=== PATIENT | male | born 1960 | race African-American/Black ===

== ENCOUNTER → 2018-06-28 | Day surgery (SDC) | payer OTHER ==
[~2018-06-28] MED LIST: BYSTOLIC10 MG PO; FENTANYL CITRATE/PF 100MCG/2 ML INJ ONE; HYOSCYAMINE SULFATE 0.5 MG/ML INJ ONE; LIDOCAINE HCL 2% LOCAL INJ 5 ML SDV VIAL INJ ONE; MIDAZOLAM HCL 2 MG/2 ML VIAL ONE; PROPOFOL IV EMULSION 10 MG/ML 20 ML VIAL ONE
[2018-06-28 15:35] VITALS: BP 141/92
--- NOTE | 2018-06-29 00:10 | Operative Report ---
DATE OF PROCEDURE: 06/28/2018 PROCEDURE: Colonoscopy and polypectomy. INDICATION FOR COLONOSCOPY: Colorectal cancer screening. MEDICATIONS: The patient was done under MAC. Please see anesthesiologist's note. PROCEDURE IN DETAIL: With the patient in left lateral decubitus position, a flexible fiberoptic Olympus colonoscope was inserted into the rectum with ease and advanced all the way to the cecum. The right colon was suboptimally prepped. No obvious obstructing or constricting lesions. Also, there was pandiverticulosis. One polyp was snared from the ascending colon and polypectomy site was hemoclipped. One polyp was hot biopsied from the transverse colon. One polyp was snared and one polyp was hot biopsied from the sigmoid colon. Four polyps were hot biopsied from the rectum. The scope was then retroflexed into the distal rectum and small internal hemorrhoids were noted, none of which were actively bleeding. The scope was then straightened out and was subsequently withdrawn. The patient tolerated the procedure well. IMPRESSION: 1. Suboptimal prep, right colon. 2. Pandiverticulosis. 3. Ascending colon polyp, snared and hemoclipped. 4. Transverse colon polyp, hot biopsied. 5. Sigmoid colon polyp x2, 1 snared and 1 hot biopsied. 6. Rectal polyp x4, hot biopsied. 7. Internal hemorrhoids, none actively bleeding. PLAN: Followup pathology. The patient will need a followup colonoscopy in 1 year due to the suboptimal prep. A total of 8 polyps were removed. Domenic Sr MD [facility] [place] /[id number] cc: Domenic Covington MD
== END | disposition home or self-care (01) ==
LOC: OR 09:21
PROVIDERS: ATTEND Internal Medicine Gastroenterology
DX: Z12.11 Encounter for screening for malignant neoplasm of colon (principal); D12.2 Benign neoplasm of ascending colon; D12.5 Benign neoplasm of sigmoid colon; K62.1 Rectal polyp; K64.8 Other hemorrhoids; K57.30 Diverticulosis of large intestine without perforation or abscess without bleeding; G47.33 Obstructive sleep apnea (adult) (pediatric); I10 Essential (primary) hypertension; Z01.810 Encounter for preprocedural cardiovascular examination; Z68.33 Body mass index [BMI] 33.0-33.9, adult
CPT/HCPCS: 45384; 45385; 93005; J1980; J2001; J2250; J2704; 45378